=== PATIENT | female | born 1990 | race Caucasian/White ===

== ENCOUNTER 2018-01-28 17:24 | Emergency (ER) | payer OTHER ==
[~2018-01-28] VITALS: Ht 149.9 cm; Wt 81.8 kg
[~2018-01-28 17:24] MED LIST: ATIVAN0.5 MG PO; BACTRIM,SEPT1 TABLET PO; CLONIDINE HCL0.1 MG PO; KLOR-CON20 MEQ PO; MOTRIN600 MG PO; PROVENTIL17 GM IH; SERTRALINE HCL100 MG; SERTRALINE HCL50 MG PO; SPRINTEC1 EACH PO; TOPAMAX25 MG PO; TRAZODONE HCL50 MG PO; ZOFRAN4 MG PO
[2018-01-28] MEDS ORDERED: ATARAX,VISTARIL50 MG PO (17:52)
[2018-01-28 18:08] VITALS: BP 117/78
== END 2018-01-28 18:08 | disposition home or self-care (01) ==
LOC: EME 17:24 → RME 17:24
DX: F41.9 Anxiety disorder, unspecified (principal); H92.09 Otalgia, unspecified ear; F32.9 Major depressive disorder, single episode, unspecified; Z72.0 Tobacco use
CPT/HCPCS: 99281; 99283; Q0177

== ENCOUNTER 2018-01-29 21:39 | Emergency (ER) | payer OTHER ==
[~2018-01-29] VITALS: Ht 149.9 cm; Wt 83.6 kg
[~2018-01-29 21:39] MED LIST changes: +ATARAX,VISTARIL50 MG PO
[2018-01-29 21:48] VITALS: BP 125/84
== END 2018-01-29 23:42 | disposition left against medical advice (07) ==
LOC: EME 21:39
DX: R07.89 Other chest pain (principal); Z53.21 Procedure and treatment not carried out due to patient leaving prior to being seen by health care provider
CPT/HCPCS: 93005